=== PATIENT | female | born 2005 | race Two or more races ===

== ENCOUNTER 2024-12-17 23:53 | Emergency (ER) | payer OTHER, SELFPAY ==
[2024-12-17 23:54] VITALS: BMI 43.0
[2024-12-18 00:06] VITALS: BP 136/80; PULSE 82; RESP 16; TEMP 36.9; O2SAT 100
[2024-12-18] MEDS: ONDANSETRON ODT 4 MG TABRAP PO (00:35)
[2024-12-18] MEDS: MG HYD/AL HYD/SIME (Maalox Reg) SUSP 30 ML UDC PO (00:36)
[2024-12-18] MEDS: FAMOTIDINE 20 MG TABLET 40 MG PO (00:36)
--- NOTE | 2024-12-18 03:15 | EDRME_ITS ---
Rapid Medical Screening Exam [facility] Arrival date/time: 12/17/24 23:53 19F with no significant PMH presents to ED with several days of burning epigastric pain and some N/V. Patient did not want to wait for blood work. Chief Complaint: Abdominal Pain Time Seen by Provider: 12/18/24 00:13 Vital signs: Vital Signs Temperature 98.5 F 12/18/24 00:06 Pulse Rate 82 12/18/24 00:06 Respiratory Rate 16 12/18/24 00:06 Blood Pressure 136/80 H 12/18/24 00:06 Pulse Oximetry (%) 100 12/18/24 00:06 Oxygen Delivery Method Room Air 12/18/24 00:06
--- NOTE | 2024-12-18 03:15 | PC.NURSE ---
PT DOES NOT WANT TO WAIT FOR BLOOD TO BE DRAWN, PROVIDER STEPHANIE MADE AWARE. PT WALKED OUT AND LEFT
== END 2024-12-18 03:38 | disposition left against medical advice (07) ==
LOC: SERX 12-18 00:29
PROVIDERS: Emergency Provider Emergency Medicine; PCP Family Medicine
DX: R10.13 Epigastric pain (principal); Z53.29 Procedure and treatment not carried out because of patient's decision for other reasons
CPT/HCPCS: 80053; 83690; 85025; 99281; Q0162; A9270